=== PATIENT | female | born 1975 | race Caucasian/White ===

== ENCOUNTER → 2017-08-12 | Outpatient (CLI) | payer BC | LOC: COL.RAD 08:40 | DX: M25.552 Pain in left hip (principal) | CPT/HCPCS: J3301; Q9967 ==

== ENCOUNTER → 2017-09-27 | Outpatient (CLI) | payer BC | LOC: COL.RAD 13:06 | DX: M25.511 Pain in right shoulder (principal); M87.9 Osteonecrosis, unspecified | CPT/HCPCS: J3301; Q9967 ==